=== PATIENT | female | born 1960 | race African-American/Black ===

== ENCOUNTER 2019-08-15 15:21 | Emergency (ER) | payer MEDICARE, MEDICAID ==
[~2019-08-15] VITALS: Ht 172.7 cm; Wt 100.0 kg
[~2019-08-15 15:21] MED LIST: DIAZ10TA MT
[2019-08-15] MEDS ORDERED: ONDANSETRON HCL 4MG/2ML INJ IV STA (21:56)
[2019-08-15] MEDS ORDERED: SODIUM CHLORIDE 0.9% 1,000 ML IV ONE (21:56)
[2019-08-15] MEDS ORDERED: MORPHINE SULFATE 4 MG/ML CPJ (NOT FOR IM USE) IV STA (21:56)
[2019-08-15] MEDS ORDERED: ONDANSETRON 4MG ODT PO ONE (22:00)
[2019-08-15] MEDS ORDERED: HYDROCODONE/ACETAMINOPHEN 5/325MG TABLET PO ONE (22:00)
[2019-08-15 22:27] LABS: CLARITY URINE CLEAR (CLEAR); COLOR URINE YELLOW (YELLOW); KETONES URINE NEGATIVE (NEGATIVE); LEUKOCYTE ESTERASE URINE 2+ (NEGATIVE); NITRITE URINE NEGATIVE (NEGATIVE); OCCULT BLOOD URINE TRACE (NEGATIVE); PROTEIN URINE NEGATIVE (NEGATIVE); SPECIFIC GRAVITY URINE 1.019 (1.005-1.030); UROBILINOGEN URINE 0.2 E.U./dL (0.2-1.0)
[2019-08-15 22:41] LABS: *AMPHETAMINES SCREEN URINE NEGATIVE (NEGATIVE); CANNABINOID URINE SCREEN PRESUMTIVE POSITIVE (NEGATIVE); METHADONE URINE SCREEN NEGATIVE (NEGATIVE); OPIATES URINE SCREEN PRESUMTIVE POSITIVE (NEGATIVE); PHENCYCLIDINE URINE SCREEN NEGATIVE (NEGATIVE)
[2019-08-15 22:42] LABS: *BARBITURATES SCREEN URINE NEGATIVE (NEGATIVE); *BENZODIAZEPINES SCREEN URINE PRESUMTIVE POSITIVE (NEGATIVE); *COCAINE SCREEN URINE NEGATIVE (NEGATIVE)
[2019-08-15 23:11] LABS: BASOPHILS % 0.9 % (0.0-2.0); EOSINOPHILS % 3.1 % (0.0-5.0); HEMATOCRIT. 41.7 % (36.0-48.0); LYMPHOCYTES % 44.5 % (20.0-50.0); MEAN CORPUSCULAR HEMOGLOBIN 27.8 pg (28.0-32.0); MEAN CORPUSCULAR VOLUME 82.8 fL (81.0-99.0); MEAN PLATELET VOLUME 7.2 fl (7.4-10.4); MONOCYTES % 7.7 % (2.0-8.0); NEUTROPHILS % 43.8 % (40.0-76.0); PLATELET 351 x1000/uL (130-400); RED BLOOD CELL COUNT 5.04 mill/uL (4.2-5.4); RED CELL DISTRIBUTION WIDTH 13.8 % (11.6-14.6)
[2019-08-15 23:18] LABS: CHLORIDE 100 mEq/L (98-107)
[2019-08-15 23:22] LABS: ETHANOL BLOOD < 10 mg/dL
[2019-08-16] MEDS ORDERED: MORPHINE SULFATE 4 MG/ML CPJ (NOT FOR IM USE) IV ONE (01:00)
[2019-08-16] MEDS ORDERED: ONDANSETRON HCL 4MG/2ML INJ IV ONE (01:00)
[2019-08-16 02:00] VITALS: BP 131/58
== END 2019-08-16 02:00 | disposition home or self-care (01) ==
LOC: ER 15:21 → CANBEDREQ 08-16 02:43
DX: N39.0 Urinary tract infection, site not specified (principal); K57.90 Diverticulosis of intestine, part unspecified, without perforation or abscess without bleeding; I10 Essential (primary) hypertension; R51 Headache; F12.90 Cannabis use, unspecified, uncomplicated
CPT/HCPCS: 36415; 71045; 74176; 80053; 80305; 80320; 81003; 83690; 83880; 84484; 85025; 93005; 96361; 96374; 96375; 96376; 99285; J2270; J2405; J7030; G0480

== ENCOUNTER 2019-11-14 13:04 | Emergency (ER) | payer MEDICARE, MEDICAID ==
[~2019-11-14] VITALS: Ht 165.1 cm; Wt 91.0 kg
[2019-11-14 15:13] LABS: CLARITY URINE CLEAR (CLEAR); COLOR URINE YELLOW (YELLOW); KETONES URINE TRACE (NEGATIVE); LEUKOCYTE ESTERASE URINE 2+ (NEGATIVE); NITRITE URINE NEGATIVE (NEGATIVE); OCCULT BLOOD URINE 1+ (NEGATIVE); PH URINE 5.5 (4.5-8.0); PROTEIN URINE NEGATIVE (NEGATIVE); SPECIFIC GRAVITY URINE 1.025 (1.005-1.030); UROBILINOGEN URINE 0.2 E.U./dL (0.2-1.0)
[2019-11-14 15:41] LABS: CHLORIDE 105 mEq/L (98-107)
[2019-11-14 15:43] LABS: BASOPHILS % 0.7 % (0.0-2.0); EOSINOPHILS % 1.4 % (0.0-5.0); HEMATOCRIT. 41.6 % (36.0-48.0); LYMPHOCYTES % 37.3 % (20.0-50.0); MEAN CORPUSCULAR HEMOGLOBIN 27.4 pg (28.0-32.0); MEAN CORPUSCULAR VOLUME 81.6 fL (81.0-99.0); MEAN PLATELET VOLUME 6.4 fl (7.4-10.4); NEUTROPHILS % 54.6 % (40.0-76.0); PLATELET 419 x1000/uL (130-400); RED BLOOD CELL COUNT 5.09 mill/uL (4.2-5.4); RED CELL DISTRIBUTION WIDTH 15.6 % (11.6-14.6)
[2019-11-14 16:20] VITALS: BP 150/100
== END 2019-11-14 16:32 | disposition home or self-care (01) ==
LOC: ER 13:04
DX: N30.00 Acute cystitis without hematuria (principal); F43.22 Adjustment disorder with anxiety; I10 Essential (primary) hypertension; K57.92 Diverticulitis of intestine, part unspecified, without perforation or abscess without bleeding; Z87.19 Personal history of other diseases of the digestive system
CPT/HCPCS: 36415; 80053; 81003; 81025; 85025; 99283

== ENCOUNTER 2020-02-04 09:49 | Emergency (ER) | payer MEDICARE, MEDICAID ==
[~2020-02-04] VITALS: Ht 170.2 cm; Wt 89.2 kg
[2020-02-04] MEDS ORDERED: KETOROLAC 30MG/ML VIAL IV ONE (10:15)
[2020-02-04 12:00] VITALS: BP 142/68
== END 2020-02-04 12:27 | disposition home or self-care (01) ==
LOC: ER 10:17
DX: G62.9 Polyneuropathy, unspecified (principal); M54.2 Cervicalgia; R53.1 Weakness; Z91.14 Patient's other noncompliance with medication regimen; I10 Essential (primary) hypertension
CPT/HCPCS: 72125; 93005; 96374; 99284; J1885

== ENCOUNTER 2020-02-15 09:05 | Emergency (ER) | payer MEDICARE, MEDICAID ==
[~2020-02-15] VITALS: Ht 170.2 cm; Wt 85.0 kg
[2020-02-15] MEDS ORDERED: LORAZEPAM 0.5MG TABLET PO ONE (10:30)
[2020-02-15] MEDS ORDERED: KETOROLAC 60MG/2ML VIAL IM ONE (10:30)
[2020-02-15 10:37] LABS: BASOPHILS % 0.7 % (0.0-2.0); EOSINOPHILS % 0.7 % (0.0-5.0); HEMATOCRIT. 42.4 % (36.0-48.0); HEMOGLOBIN. 14.1 g/dL (12.0-16.0); MEAN CORPUSCULAR HEMOGLOBIN 28.1 pg (28.0-32.0); MEAN CORPUSCULAR VOLUME 84.6 fL (81.0-99.0); MEAN PLATELET VOLUME 6.7 fl (7.4-10.4); MONOCYTES % 4.3 % (2.0-8.0); NEUTROPHILS % 70.3 % (40.0-76.0); PLATELET 330 x1000/uL (130-400); RED BLOOD CELL COUNT 5.01 mill/uL (4.2-5.4)
[2020-02-15 10:46] LABS: CHLORIDE 108 mEq/L (98-107)
[2020-02-15 11:25] VITALS: BP 136/82
== END 2020-02-15 11:40 | disposition home or self-care (01) ==
LOC: ER 09:05
DX: M19.011 Primary osteoarthritis, right shoulder (principal); R20.2 Paresthesia of skin; I10 Essential (primary) hypertension; Z88.8 Allergy status to other drugs, medicaments and biological substances; Z98.51 Tubal ligation status
CPT/HCPCS: 36415; 73030; 80053; 85025; 93005; 96372; 99285; J1885

== ENCOUNTER 2020-06-05 11:54 | Emergency (ER) | payer MEDICARE, MEDICAID ==
[~2020-06-05] VITALS: Ht 170.2 cm; Wt 90.0 kg
[2020-06-05 12:05] VITALS: BP 139/92
== END 2020-06-05 13:14 | disposition home or self-care (01) ==
LOC: ER 12:07
DX: I10 Essential (primary) hypertension (principal)
CPT/HCPCS: 99282

== ENCOUNTER 2020-10-03 14:29 | Emergency (ER) | payer MEDICARE, MEDICAID ==
[~2020-10-03] VITALS: Ht 170.2 cm; Wt 91.0 kg
[2020-10-03] MEDS ORDERED: METH-773 MT (15:46)
[2020-10-03] MEDS ORDERED: TOPUD MT (15:46)
[2020-10-03 15:59] VITALS: BP 124/92
== END 2020-10-03 16:19 | disposition home or self-care (01) ==
LOC: ER 14:29
DX: S46.912A Strain of unspecified muscle, fascia and tendon at shoulder and upper arm level, left arm, initial encounter (principal); F12.10 Cannabis abuse, uncomplicated; I10 Essential (primary) hypertension; X58.XXXA Exposure to other specified factors, initial encounter; Y93.89 Activity, other specified; Y92.89 Other specified places as the place of occurrence of the external cause; Y99.8 Other external cause status
CPT/HCPCS: 99283

== ENCOUNTER 2020-10-11 11:07 | Inpatient (IN) | payer MEDICARE, MEDICAID ==
[~2020-10-11] VITALS: Ht 175.3 cm; Wt 87.5 kg
[~2020-10-11 11:07] MED LIST changes: +METH-773 MT; +TOPUD MT
[2020-10-11] MEDS ORDERED: ONDANSETRON HCL 4MG/2ML INJ IV STA (11:50)
[2020-10-11] MEDS ORDERED: SODIUM CHLORIDE 0.9% 1,000 ML IV ONE (12:00)
[2020-10-11 12:25] LABS: BASOPHILS % 0.7 % (0.0-2.0); EOSINOPHILS % 1.1 % (0.0-5.0); HEMOGLOBIN. 13.6 g/dL (12.0-16.0); LYMPHOCYTES % 29.9 % (20.0-50.0); MEAN CORPUSCULAR HEMOGLOBIN 27.8 pg (28.0-32.0); MEAN CORPUSCULAR VOLUME 83.9 fL (81.0-99.0); MEAN PLATELET VOLUME 6.7 fl (7.4-10.4); NEUTROPHILS % 62.3 % (40.0-76.0); PLATELET 324 x1000/uL (130-400); RED BLOOD CELL COUNT 4.89 mill/uL (4.2-5.4); RED CELL DISTRIBUTION WIDTH 14.6 % (11.6-14.6)
[2020-10-11 12:30] LABS: CHLORIDE 106 mEq/L (98-107)
[2020-10-11 12:36] LABS: PARTIAL THROMBOPLASTIN TIME 26.8 sec (23.4-31.0); PROTHROMBIN TIME 10.3 sec (9.6-11.0)
[2020-10-11] MEDS ORDERED: ASPIRIN 325MG EC TABLET PO ONE (13:15)
[2020-10-11] MEDS ORDERED: ACETAMINOPHEN 325MG TABLET PO ONE (13:30)
[2020-10-11] MEDS: AMLODIPINE 5MG TABLET PO SCH (13:38)
[2020-10-11 16:10] VITALS: BP 176/102
[2020-10-11] MEDS ORDERED: HYDRALAZINE 20MG/ML VIAL IV PRN (17:00)
[2020-10-11] MEDS ORDERED: DOCUSATE SODIUM 100MG CAPSULE PO PRN (17:00)
[2020-10-11] MEDS ORDERED: ONDANSETRON HCL 4MG/2ML INJ IV PRN (17:00)
[2020-10-11] MEDS ORDERED: DIPHENHYDRAMINE 50MG/ML VIAL IV PRN (17:00)
[2020-10-11] MEDS ORDERED: MAGNESIUM/ALUMINUM HYDROXIDE/SIMETHICONE 30ML UDC PO PRN (17:00)
[2020-10-11] MEDS ORDERED: IPRATROPIUM/ALBUTEROL 0.5-3(2.5)MG/3ML NEB HHN PRN (17:00)
[2020-10-11] MEDS ORDERED: GUAIFENESIN 200MG/10ML SUGAR FREE UDC PO PRN (17:00)
[2020-10-11] MEDS ORDERED: CLONIDINE 0.1MG TABLET PO PRN (17:00)
[2020-10-11] MEDS: HYDROCODONE/ACETAMINOPHEN 5/325MG TABLET PO PRN (17:32)
[2020-10-11] MEDS: ENOXAPARIN 30MG/0.3ML SYR SUBCUT SCH (17:34)
[2020-10-11 20:00] VITALS: BP 147/91
[2020-10-11] MEDS: ACETAMINOPHEN 325MG TABLET PO PRN (20:02)
[2020-10-11] MEDS: MORPHINE SULFATE 2 MG/ML CPJ (NOT FOR IM USE) IV PRN (22:07)
[2020-10-11] MEDS: SODIUM CHLORIDE 0.9% INJ 3ML FLUSH IVF SCH (22:08)
[2020-10-12] VITALS: BP 130/73
[2020-10-12 00:58] LABS: CREATINE KINASE 88 IU/L (26-192)
[2020-10-12 00:59] LABS: CREATINE KINASE MB FRACTION < 1.0 ng/mL (0.5-3.6)
[2020-10-12 01:39] LABS: CLARITY URINE CLEAR (CLEAR); COLOR URINE YELLOW (YELLOW); KETONES URINE NEGATIVE (NEGATIVE); LEUKOCYTE ESTERASE URINE NEGATIVE (NEGATIVE); NITRITE URINE NEGATIVE (NEGATIVE); OCCULT BLOOD URINE TRACE (NEGATIVE); PH URINE 5.5 (4.5-8.0); PROTEIN URINE NEGATIVE (NEGATIVE); SPECIFIC GRAVITY URINE 1.015 (1.005-1.030); UROBILINOGEN URINE 0.2 E.U./dL (0.2-1.0)
[2020-10-12 01:57] LABS: *AMPHETAMINES SCREEN URINE NEGATIVE (NEGATIVE); *BARBITURATES SCREEN URINE NEGATIVE (NEGATIVE)
[2020-10-12 01:58] LABS: *BENZODIAZEPINES SCREEN URINE NEGATIVE (NEGATIVE); *COCAINE SCREEN URINE NEGATIVE (NEGATIVE); CANNABINOID URINE SCREEN PRESUMTIVE POSITIVE (NEGATIVE); METHADONE URINE SCREEN NEGATIVE (NEGATIVE); OPIATES URINE SCREEN PRESUMTIVE POSITIVE (NEGATIVE); PHENCYCLIDINE URINE SCREEN NEGATIVE (NEGATIVE)
[2020-10-12] MEDS: LORAZEPAM 2MG/ML CPJ IV PRN (03:14)
[2020-10-12 04:00] VITALS: BP 130/76
[2020-10-12] MEDS: SODIUM CHLORIDE 0.9% INJ 3ML FLUSH IVF SCH ×3 (05:38→20:53)
[2020-10-12] MEDS: ENOXAPARIN 30MG/0.3ML SYR SUBCUT SCH ×2 (05:38→17:08)
[2020-10-12] MEDS: ACETAMINOPHEN 325MG TABLET PO PRN ×2 (05:44→11:42)
[2020-10-12 06:01] LABS: CHLORIDE 103 mEq/L (98-107)
[2020-10-12 06:11] LABS: CREATINE KINASE 78 IU/L (26-192)
[2020-10-12 06:13] LABS: BASOPHILS % 0.5 % (0.0-2.0); EOSINOPHILS % 2.7 % (0.0-5.0); HEMATOCRIT. 40.8 % (36.0-48.0); HEMOGLOBIN. 13.5 g/dL (12.0-16.0); LYMPHOCYTES % 41.6 % (20.0-50.0); MEAN CORPUSCULAR HEMOGLOBIN 27.3 pg (28.0-32.0); MEAN CORPUSCULAR VOLUME 82.8 fL (81.0-99.0); MEAN PLATELET VOLUME 6.6 fl (7.4-10.4); MONOCYTES % 9.2 % (2.0-8.0); PLATELET 338 x1000/uL (130-400); RED BLOOD CELL COUNT 4.93 mill/uL (4.2-5.4); RED CELL DISTRIBUTION WIDTH 14.6 % (11.6-14.6)
[2020-10-12 06:14] LABS: CREATINE KINASE MB FRACTION < 1.0 ng/mL (0.5-3.6)
[2020-10-12 08:00] VITALS: BP 148/98
[2020-10-12] MEDS: AMLODIPINE 5MG TABLET PO SCH (08:32)
[2020-10-12] MEDS ORDERED: POTASSIUM CHLORIDE 20MEQ TABLET SR PO SCH (08:45)
[2020-10-12] MEDS: PANTOPRAZOLE SODIUM 40 MG/VIAL IV SCH (11:42)
[2020-10-12 12:00] VITALS: BP 143/86
[2020-10-12] MEDS: HYDROCODONE/ACETAMINOPHEN 5/325MG TABLET PO PRN (13:59)
[2020-10-12 16:00] VITALS: BP 131/86
[2020-10-12] MEDS: ASPIRIN 81MG EC TABLET PO SCH (17:07)
[2020-10-12] MEDS: MORPHINE SULFATE 2 MG/ML CPJ (NOT FOR IM USE) IV PRN (20:53)
[2020-10-13] VITALS (7 sets, daily range): BP systolic 108–145; BP diastolic 61–93
[2020-10-13] MEDS: LORAZEPAM 2MG/ML CPJ IV PRN (01:49)
[2020-10-13] MEDS: SODIUM CHLORIDE 0.9% INJ 3ML FLUSH IVF SCH ×3 (06:00→21:16)
[2020-10-13] MEDS: ENOXAPARIN 30MG/0.3ML SYR SUBCUT SCH ×2 (06:00→18:08)
[2020-10-13 06:26] LABS: BASOPHILS % 0.4 % (0.0-2.0); EOSINOPHILS % 2.6 % (0.0-5.0); HEMATOCRIT. 40.8 % (36.0-48.0); HEMOGLOBIN. 13.7 g/dL (12.0-16.0); LYMPHOCYTES % 40.2 % (20.0-50.0); MEAN CORPUSCULAR HEMOGLOBIN 27.6 pg (28.0-32.0); MEAN CORPUSCULAR VOLUME 82.4 fL (81.0-99.0); MEAN PLATELET VOLUME 6.6 fl (7.4-10.4); NEUTROPHILS % 46.8 % (40.0-76.0); PLATELET 344 x1000/uL (130-400); RED BLOOD CELL COUNT 4.95 mill/uL (4.2-5.4); RED CELL DISTRIBUTION WIDTH 14.1 % (11.6-14.6)
[2020-10-13 07:44] LABS: CHLORIDE 105 mEq/L (98-107)
[2020-10-13] MEDS: PANTOPRAZOLE SODIUM 40 MG/VIAL IV SCH (09:17)
[2020-10-13] MEDS: AMLODIPINE 5MG TABLET PO SCH (09:18)
[2020-10-13] MEDS: ASPIRIN 81MG EC TABLET PO SCH (09:18)
[2020-10-13] MEDS: HYDROCODONE/ACETAMINOPHEN 5/325MG TABLET PO PRN ×3 (11:34→23:33)
[2020-10-13] MEDS: GABAPENTIN 100MG CAPSULE PO SCH ×2 (14:57→21:15)
[2020-10-13] MEDS: ACETAMINOPHEN 325MG TABLET PO PRN (19:23)
[2020-10-13] MEDS: FAMOTIDINE 20MG TABLET PO SCH (21:16)
[2020-10-13] MEDS: MORPHINE SULFATE 2 MG/ML CPJ (NOT FOR IM USE) IV PRN (21:17)
[2020-10-14 04:00] VITALS: BP 94/77
[2020-10-14] MEDS: ENOXAPARIN 30MG/0.3ML SYR SUBCUT SCH (06:00)
[2020-10-14 06:06] LABS: CHLORIDE 104 mEq/L (98-107)
[2020-10-14] MEDS: GABAPENTIN 100MG CAPSULE PO SCH ×3 (06:13→20:24)
[2020-10-14] MEDS: SODIUM CHLORIDE 0.9% INJ 3ML FLUSH IVF SCH ×3 (06:14→20:25)
[2020-10-14] MEDS: LORAZEPAM 2MG/ML CPJ IV PRN ×2 (06:14→22:06)
[2020-10-14 06:29] LABS: BASOPHILS % 0.5 % (0.0-2.0); EOSINOPHILS % 3.9 % (0.0-5.0); HEMATOCRIT. 40.3 % (36.0-48.0); HEMOGLOBIN. 13.7 g/dL (12.0-16.0); LYMPHOCYTES % 47.4 % (20.0-50.0); MEAN CORPUSCULAR HEMOGLOBIN 28.3 pg (28.0-32.0); MEAN PLATELET VOLUME 6.6 fl (7.4-10.4); MONOCYTES % 9.1 % (2.0-8.0); NEUTROPHILS % 39.1 % (40.0-76.0); PLATELET 332 x1000/uL (130-400); RED BLOOD CELL COUNT 4.86 mill/uL (4.2-5.4); RED CELL DISTRIBUTION WIDTH 14.3 % (11.6-14.6)
[2020-10-14 08:00] VITALS: BP 116/77
[2020-10-14] MEDS ORDERED: REGADENOSON 0.4 MG/5 ML IV NR (09:00)
[2020-10-14] MEDS: FAMOTIDINE 20MG TABLET PO SCH ×2 (09:39→20:24)
[2020-10-14] MEDS: ASPIRIN 81MG EC TABLET PO SCH (09:39)
[2020-10-14] MEDS ORDERED: REGADENOSON 0.4 MG/5 ML IV ONE (11:24)
[2020-10-14 12:00] VITALS: BP 115/83
[2020-10-14] MEDS: HYDROCODONE/ACETAMINOPHEN 5/325MG TABLET PO PRN (12:49)
[2020-10-14] MEDS: MORPHINE SULFATE 2 MG/ML CPJ (NOT FOR IM USE) IV PRN (15:59)
[2020-10-14 16:00] VITALS: BP 107/76
[2020-10-14] MEDS: DEXAMETHASONE 4MG/ML 1ML VIAL IV SCH (18:06)
[2020-10-14 20:00] VITALS: BP 122/84
[2020-10-15] VITALS: BP 120/79
[2020-10-15] MEDS: DEXAMETHASONE 4MG/ML 1ML VIAL IV SCH ×4 (00:05→17:46)
[2020-10-15] MEDS: MORPHINE SULFATE 2 MG/ML CPJ (NOT FOR IM USE) IV PRN ×2 (03:12→23:16)
[2020-10-15 04:00] VITALS: BP 132/84
[2020-10-15] MEDS: SODIUM CHLORIDE 0.9% INJ 3ML FLUSH IVF SCH ×3 (06:37→23:06)
[2020-10-15] MEDS: GABAPENTIN 100MG CAPSULE PO SCH ×3 (06:37→23:06)
[2020-10-15 07:58] VITALS: BP 152/87
[2020-10-15] MEDS: ACETAMINOPHEN 325MG TABLET PO PRN ×2 (08:14→16:40)
[2020-10-15] MEDS: FAMOTIDINE 20MG TABLET PO SCH ×2 (08:14→21:00)
[2020-10-15 11:14] VITALS: BP 133/100
[2020-10-15] MEDS: HYDROCODONE/ACETAMINOPHEN 5/325MG TABLET PO PRN (11:16)
[2020-10-15 15:46] VITALS: BP 143/81
[2020-10-15 20:00] VITALS: BP 129/81
[2020-10-16] VITALS (38 sets, daily range): BP systolic 94–154; BP diastolic 44–96
[2020-10-16] MEDS: HYDROCODONE/ACETAMINOPHEN 5/325MG TABLET PO PRN (00:42)
[2020-10-16] MEDS: DEXAMETHASONE 4MG/ML 1ML VIAL IV SCH ×5 (00:43→23:16)
[2020-10-16] MEDS: MORPHINE SULFATE 2 MG/ML CPJ (NOT FOR IM USE) IV PRN (05:10)
[2020-10-16] MEDS: SODIUM CHLORIDE 0.9% INJ 3ML FLUSH IVF SCH ×3 (05:15→21:44)
[2020-10-16] MEDS: GABAPENTIN 100MG CAPSULE PO SCH ×3 (05:16→21:42)
[2020-10-16 06:20] LABS: CHLORIDE 101 mEq/L (98-107)
[2020-10-16 06:34] LABS: BASOPHILS % 0.1 % (0.0-2.0); HEMATOCRIT. 41.1 % (36.0-48.0); LYMPHOCYTES % 11.7 % (20.0-50.0); MEAN CORPUSCULAR HEMOGLOBIN 28.2 pg (28.0-32.0); MEAN CORPUSCULAR VOLUME 82.6 fL (81.0-99.0); MEAN PLATELET VOLUME 6.8 fl (7.4-10.4); MONOCYTES % 3.8 % (2.0-8.0); NEUTROPHILS % 84.4 % (40.0-76.0); PLATELET 367 x1000/uL (130-400); PROTHROMBIN TIME 10.5 sec (9.6-11.0); RED BLOOD CELL COUNT 4.98 mill/uL (4.2-5.4); RED CELL DISTRIBUTION WIDTH 14.4 % (11.6-14.6)
[2020-10-16] MEDS ORDERED: LIDOCAINE HCL/EPINEPHRINE 1%-EPI 1:100,000 20 ML VIAL ONE (07:46)
[2020-10-16] MEDS ORDERED: BACITRACIN 15GM TUBE TOP ONE (07:46)
[2020-10-16] MEDS ORDERED: THROMBIN (BOVINE) 5000 UNITS/VIAL TOP ONE (07:47)
[2020-10-16] MEDS: FAMOTIDINE 20MG TABLET PO SCH ×2 (08:38→21:42)
[2020-10-16] MEDS ORDERED: GENTAMICIN SULF 40MG/ML 2ML VIAL ONE (10:50)
[2020-10-16] MEDS ORDERED: ROCURONIUM BROMIDE 10MG/ML VIAL 5ML IV ONE (12:38)
[2020-10-16] MEDS ORDERED: HYDROMORPHONE HCL/PF 2MG/ML (OR) ONE (12:38)
[2020-10-16] MEDS ORDERED: CEFAZOLIN SODIUM 1000MG/VIAL ONE (12:58)
[2020-10-16] MEDS ORDERED: METOPROLOL TARTRATE 5MG/5ML VIAL IV ONE (12:58)
[2020-10-16] MEDS ORDERED: HYDRALAZINE 20MG/ML VIAL ONE ×2 (12:58→14:04)
[2020-10-16] MEDS ORDERED: DEXAMETHASONE 4MG/ML 1ML VIAL ONE (12:59)
[2020-10-16] MEDS ORDERED: LABETALOL HCL 5MG/ML VIAL 20ML IV ONE (13:16)
[2020-10-16] MEDS ORDERED: PROPOFOL 200MG/20ML VIAL IV ONE (13:55)
[2020-10-16] MEDS ORDERED: CEFAZOLIN SODIUM 1000MG/VIAL IV SCH (14:00)
[2020-10-16] MEDS ORDERED: NEOSTIGMINE METHYLSULFATE 1MG/ML 10 ML VIAL ONE (14:10)
[2020-10-16] MEDS ORDERED: GLYCOPYRROLATE 0.2 MG/ML 2ML VIAL ONE (14:10)
[2020-10-16] MEDS: DEXT 5%/LACTATED RINGERS 1,000 ML IV SCH (14:56)
[2020-10-16] MEDS: NICARDIPINE 100 MG in SODIUM CHLORIDE 0.9% 60 ML IV PRN (15:08)
[2020-10-16] MEDS: MORPHINE SULFATE 4 MG/ML CPJ (NOT FOR IM USE) IV PRN ×2 (15:30→18:01)
[2020-10-16] MEDS ORDERED: DIPHENHYDRAMINE INJ IV PRN (18:00)
[2020-10-16] MEDS ORDERED: HYDROMORPHONE PCA 10MG/50ML IV PRN (18:00)
[2020-10-16] MEDS ORDERED: ONDANSETRON INJ IV PRN (18:00)
[2020-10-16] MEDS ORDERED: NALOXONE INJ IV PRN (18:00)
[2020-10-16] MEDS: CEFAZOLIN 1000MG PREMIX 50 ML IV SCH (19:34)
[2020-10-17] VITALS (98 sets, daily range): BP systolic 110–155; BP diastolic 48–82
[2020-10-17] MEDS: DEXT 5%/LACTATED RINGERS 1,000 ML IV SCH ×3 (01:42→20:04)
[2020-10-17] MEDS: NICARDIPINE 100 MG in SODIUM CHLORIDE 0.9% 60 ML IV PRN ×2 (03:28→15:02)
[2020-10-17] MEDS: CEFAZOLIN 1000MG PREMIX 50 ML IV SCH ×3 (05:20→21:47)
[2020-10-17] MEDS: GABAPENTIN 100MG CAPSULE PO SCH ×3 (05:20→21:47)
[2020-10-17] MEDS: DEXAMETHASONE 4MG/ML 1ML VIAL IV SCH ×3 (05:20→17:08)
[2020-10-17] MEDS: SODIUM CHLORIDE 0.9% INJ 3ML FLUSH IVF SCH ×2 (05:25→14:39)
[2020-10-17] MEDS: FAMOTIDINE 20MG TABLET PO SCH ×2 (09:12→20:05)
[2020-10-17] MEDS: MORPHINE SULFATE 4 MG/ML CPJ (NOT FOR IM USE) IV PRN ×5 (09:13→20:05)
[2020-10-17] MEDS: METOPROLOL TARTRATE 25MG TABLET PO SCH (17:09)
[2020-10-17] MEDS: AMLODIPINE 10MG TABLET PO SCH (20:05)
[2020-10-18] VITALS (43 sets, daily range): BP systolic 68–136; BP diastolic 28–98
[2020-10-18] MEDS: METOPROLOL TARTRATE 25MG TABLET PO SCH ×3 (00:10→16:53)
[2020-10-18 05:27] LABS: BASOPHILS % 0.2 % (0.0-2.0); HEMATOCRIT. 41.2 % (36.0-48.0); HEMOGLOBIN. 13.6 g/dL (12.0-16.0); LYMPHOCYTES % 9.7 % (20.0-50.0); MEAN CORPUSCULAR HEMOGLOBIN 27.4 pg (28.0-32.0); MEAN CORPUSCULAR VOLUME 82.9 fL (81.0-99.0); MONOCYTES % 9.5 % (2.0-8.0); NEUTROPHILS % 80.6 % (40.0-76.0); PLATELET 406 x1000/uL (130-400); RED BLOOD CELL COUNT 4.97 mill/uL (4.2-5.4); RED CELL DISTRIBUTION WIDTH 13.9 % (11.6-14.6)
[2020-10-18 05:32] LABS: CHLORIDE 100 mEq/L (98-107)
[2020-10-18] MEDS: GABAPENTIN 100MG CAPSULE PO SCH ×3 (06:03→22:54)
[2020-10-18] MEDS: DEXT 5%/LACTATED RINGERS 1,000 ML IV SCH (06:03)
[2020-10-18] MEDS: CEFAZOLIN 1000MG PREMIX 50 ML IV SCH ×3 (06:03→22:53)
[2020-10-18] MEDS: FAMOTIDINE 20MG TABLET PO SCH ×2 (07:27→20:09)
[2020-10-18] MEDS: AMLODIPINE 10MG TABLET PO SCH (07:28)
[2020-10-18] MEDS: MORPHINE SULFATE 4 MG/ML CPJ (NOT FOR IM USE) IV PRN ×2 (12:31→16:54)
[2020-10-18] MEDS: ACETAMINOPHEN 325MG TABLET PO PRN ×2 (14:46→19:34)
[2020-10-18] MEDS ORDERED: ACETAMINOPHEN 325MG TABLET PO PRN (19:45)
[2020-10-19] VITALS: BP 109/84
[2020-10-19] MEDS: METOPROLOL TARTRATE 25MG TABLET PO SCH ×3 (00:30→17:12)
[2020-10-19] MEDS: HYDROCODONE/ACETAMINOPHEN 5/325MG TABLET PO PRN ×4 (00:39→18:33)
[2020-10-19 04:00] VITALS: BP 123/86
[2020-10-19] MEDS: CEFAZOLIN 1000MG PREMIX 50 ML IV SCH ×3 (05:31→21:34)
[2020-10-19] MEDS: GABAPENTIN 100MG CAPSULE PO SCH ×3 (05:31→21:34)
[2020-10-19 06:16] LABS: BASOPHILS % 0.2 % (0.0-2.0); EOSINOPHILS % 0.1 % (0.0-5.0); HEMOGLOBIN. 14.1 g/dL (12.0-16.0); LYMPHOCYTES % 25.8 % (20.0-50.0); MEAN CORPUSCULAR HEMOGLOBIN 28.3 pg (28.0-32.0); MEAN CORPUSCULAR VOLUME 82.4 fL (81.0-99.0); MEAN PLATELET VOLUME 6.8 fl (7.4-10.4); MONOCYTES % 12.5 % (2.0-8.0); NEUTROPHILS % 61.4 % (40.0-76.0); PLATELET 395 x1000/uL (130-400); RED BLOOD CELL COUNT 4.98 mill/uL (4.2-5.4); RED CELL DISTRIBUTION WIDTH 14.2 % (11.6-14.6)
[2020-10-19 06:39] LABS: CHLORIDE 98 mEq/L (98-107)
[2020-10-19 08:00] VITALS: BP 115/72
[2020-10-19] MEDS: FAMOTIDINE 20MG TABLET PO SCH ×2 (08:31→21:34)
[2020-10-19] MEDS: AMLODIPINE 10MG TABLET PO SCH (08:32)
[2020-10-19 12:00] VITALS: BP 114/83
[2020-10-19 16:00] VITALS: BP_SYST 109; BP_SYST 119; BP_DIAS 43; BP_DIAS 79
[2020-10-19 20:00] VITALS: BP 104/73
[2020-10-20] VITALS (7 sets, daily range): BP systolic 100–116; BP diastolic 71–98
[2020-10-20] MEDS: METOPROLOL TARTRATE 25MG TABLET PO SCH ×3 (00:30→17:31)
[2020-10-20] MEDS: HYDROCODONE/ACETAMINOPHEN 5/325MG TABLET PO PRN ×2 (02:13→08:08)
[2020-10-20] MEDS: CEFAZOLIN 1000MG PREMIX 50 ML IV SCH ×2 (05:47→14:20)
[2020-10-20] MEDS: GABAPENTIN 100MG CAPSULE PO SCH ×2 (05:47→14:18)
[2020-10-20] MEDS: AMLODIPINE 10MG TABLET PO SCH (08:48)
[2020-10-20] MEDS: FAMOTIDINE 20MG TABLET PO SCH (08:48)
[2020-10-20] MEDS: MORPHINE SULFATE 4 MG/ML CPJ (NOT FOR IM USE) IV PRN ×2 (11:14→15:45)
== END 2020-10-20 20:15 | DRG 471 ==
LOC: ER 11:31 → 6WST 13:57 → ENRESERV 14:41 → MICUSO 10-16 14:08 → 5WST 10-18 20:40
PROVIDERS: ADMIT Internal Medicine; ATTEND Internal Medicine
PROC: 0RG20A0 Fusion of 2 or more Cervical Vertebral Joints with Interbody Fusion Device, Anterior Approach, Anterior Column, Open Approach (ICD-10-PCS; principal; 2020-10-16)
PROC: 0RT30ZZ Resection of Cervical Vertebral Disc, Open Approach (ICD-10-PCS; 2020-10-16)
PROC: 01N10ZZ Release Cervical Nerve, Open Approach (ICD-10-PCS; 2020-10-16)
PROC: 00NW0ZZ Release Cervical Spinal Cord, Open Approach (ICD-10-PCS; 2020-10-16)
PROC: 4A11X4G Monitoring of Peripheral Nervous Electrical Activity, Intraoperative, External Approach (ICD-10-PCS; 2020-10-16)
DX: M47.12 Other spondylosis with myelopathy, cervical region (principal); G82.50 Quadriplegia, unspecified; K86.0 Alcohol-induced chronic pancreatitis; M50.021 Cervical disc disorder at C4-C5 level with myelopathy; M50.121 Cervical disc disorder at C4-C5 level with radiculopathy; M48.02 Spinal stenosis, cervical region; R07.9 Chest pain, unspecified; Z20.822 Contact with and (suspected) exposure to COVID-19; M47.22 Other spondylosis with radiculopathy, cervical region; M19.012 Primary osteoarthritis, left shoulder; I10 Essential (primary) hypertension; K29.70 Gastritis, unspecified, without bleeding; F12.90 Cannabis use, unspecified, uncomplicated; I27.20 Pulmonary hypertension, unspecified; K21.9 Gastro-esophageal reflux disease without esophagitis; F10.10 Alcohol abuse, uncomplicated; R26.81 Unsteadiness on feet; R33.9 Retention of urine, unspecified; F32.9 Major depressive disorder, single episode, unspecified; F41.9 Anxiety disorder, unspecified; Z87.891 Personal history of nicotine dependence; Z86.73 Personal history of transient ischemic attack (TIA), and cerebral infarction without residual deficits; Z98.51 Tubal ligation status
CPT/HCPCS: 36415; 70551; 71045; 72040; 72141; 73030; 76000; 78452; 80048; 80053; 80305; 81003; 82550; 82553; 83735; 83880; 84100; 84443; 84484; 85025; 86850; 86900; 87426; 88304; 88311; 92610; 93005; 93017; 93306; 95863; 95925; 95926; 95928; 95929; 95940; 97162; 97166; 97530; 99285; A6261; A9500; C1713; C1893; C9113; J0360; J0690; J1100; J1170; J1200; J1580; J1650; J2060; J2270; J2405; J2704; J2710; J2785; J3490; J7030; J7040; J7050; J7121; L0172; C1762

== ENCOUNTER 2020-10-20 20:20 | Inpatient (IN) | payer MEDICARE, MEDICAID ==
[~2020-10-20] VITALS: Ht 175.3 cm; Wt 89.9 kg
[2020-10-20 20:20] VITALS: BP 101/70
[~2020-10-20 20:20] MED LIST changes: -TOPUD MT
[2020-10-20 20:30] VITALS: BP 101/70
[2020-10-20] MEDS ORDERED: DIPHENHYDRAMINE 50MG/ML VIAL IV PRN (21:15)
[2020-10-20] MEDS ORDERED: CLONIDINE 0.1MG TABLET PO PRN (21:15)
[2020-10-20] MEDS ORDERED: NALOXONE HCL 0.4 MG/ML 1ML VIAL IV PRN (21:15)
[2020-10-20] MEDS ORDERED: GUAIFENESIN 200MG/10ML SUGAR FREE UDC PO PRN (21:15)
[2020-10-20] MEDS ORDERED: IPRATROPIUM/ALBUTEROL 0.5-3(2.5)MG/3ML NEB HHN PRN (21:15)
[2020-10-20] MEDS ORDERED: MAGNESIUM/ALUMINUM HYDROXIDE/SIMETHICONE 30ML UDC PO PRN (21:15)
[2020-10-20] MEDS ORDERED: ONDANSETRON HCL 4MG/2ML INJ IV PRN (21:15)
[2020-10-20] MEDS: METOPROLOL TARTRATE 25MG TABLET PO SCH (21:30)
[2020-10-20] MEDS: HYDROCODONE/ACETAMINOPHEN 5/325MG TABLET PO PRN (21:44)
[2020-10-20] MEDS: FAMOTIDINE 20MG TABLET PO SCH (21:44)
[2020-10-20] MEDS ORDERED: GABAPENTIN 300MG CAPSULE PO SCH (22:00)
[2020-10-21] MEDS: MORPHINE SULFATE 2 MG/ML CPJ (NOT FOR IM USE) IV PRN ×4 (00:44→20:22)
[2020-10-21 01:35] LABS: CLARITY URINE CLEAR (CLEAR); COLOR URINE YELLOW (YELLOW); KETONES URINE NEGATIVE (NEGATIVE); LEUKOCYTE ESTERASE URINE TRACE (NEGATIVE); NITRITE URINE NEGATIVE (NEGATIVE); OCCULT BLOOD URINE 2+ (NEGATIVE); PH URINE 6.5 (4.5-8.0); PROTEIN URINE NEGATIVE (NEGATIVE); SPECIFIC GRAVITY URINE 1.007 (1.005-1.030); UROBILINOGEN URINE 0.2 E.U./dL (0.2-1.0)
[2020-10-21] MEDS: METOPROLOL TARTRATE 25MG TABLET PO SCH ×3 (05:58→22:18)
[2020-10-21] MEDS: DOCUSATE SODIUM 100MG CAPSULE PO PRN ×2 (06:02→08:58)
[2020-10-21] MEDS: GABAPENTIN 100MG CAPSULE PO SCH ×3 (06:02→22:19)
[2020-10-21] MEDS: HYDROCODONE/ACETAMINOPHEN 5/325MG TABLET PO PRN ×3 (06:03→16:32)
[2020-10-21 08:06] VITALS: BP 101/68
[2020-10-21] MEDS: FAMOTIDINE 20MG TABLET PO SCH ×2 (08:58→22:18)
[2020-10-21] MEDS: AMLODIPINE 10MG TABLET PO SCH (08:58)
[2020-10-21] MEDS ORDERED: NA PHOS,M-B/NA PHOS,DI-BA ENEMA 118ML PR PRN (15:30)
[2020-10-21] MEDS: DOCUSATE SODIUM 100MG CAPSULE PO SCH (17:18)
[2020-10-21] MEDS: BISACODYL 5MG TABLET PO PRN (17:18)
[2020-10-21 20:00] VITALS: BP 116/72
[2020-10-22] MEDS: MORPHINE SULFATE 2 MG/ML CPJ (NOT FOR IM USE) IV PRN ×2 (01:27→08:08)
[2020-10-22] MEDS: METOPROLOL TARTRATE 25MG TABLET PO SCH ×3 (06:00→22:00)
[2020-10-22 06:35] LABS: CHLORIDE 101 mEq/L (98-107)
[2020-10-22 06:43] LABS: BASOPHILS % 0.2 % (0.0-2.0); EOSINOPHILS % 2.8 % (0.0-5.0); HEMATOCRIT. 42.6 % (36.0-48.0); HEMOGLOBIN. 14.5 g/dL (12.0-16.0); LYMPHOCYTES % 33.9 % (20.0-50.0); MEAN CORPUSCULAR HEMOGLOBIN 28.2 pg (28.0-32.0); MEAN CORPUSCULAR VOLUME 82.7 fL (81.0-99.0); MEAN PLATELET VOLUME 6.9 fl (7.4-10.4); MONOCYTES % 8.7 % (2.0-8.0); NEUTROPHILS % 54.4 % (40.0-76.0); PLATELET 395 x1000/uL (130-400); RED BLOOD CELL COUNT 5.15 mill/uL (4.2-5.4); RED CELL DISTRIBUTION WIDTH 14.1 % (11.6-14.6)
[2020-10-22] MEDS: ACETAMINOPHEN 325MG TABLET PO PRN ×2 (06:47→15:36)
[2020-10-22] MEDS: GABAPENTIN 100MG CAPSULE PO SCH ×3 (06:47→21:57)
[2020-10-22] MEDS: DOCUSATE SODIUM 100MG CAPSULE PO SCH ×2 (08:08→17:26)
[2020-10-22] MEDS: FAMOTIDINE 20MG TABLET PO SCH ×2 (08:08→21:57)
[2020-10-22] MEDS: AMLODIPINE 10MG TABLET PO SCH (08:13)
[2020-10-22 08:20] VITALS: BP 108/66
[2020-10-22] MEDS: HYDROCODONE/ACETAMINOPHEN 5/325MG TABLET PO PRN ×3 (10:43→22:00)
[2020-10-22 20:00] VITALS: BP 91/59
[2020-10-23] MEDS: HYDROCODONE/ACETAMINOPHEN 5/325MG TABLET PO PRN ×4 (04:28→20:09)
[2020-10-23] MEDS: METOPROLOL TARTRATE 25MG TABLET PO SCH ×3 (06:00→21:11)
[2020-10-23] MEDS: GABAPENTIN 100MG CAPSULE PO SCH ×3 (06:23→21:11)
[2020-10-23 07:50] VITALS: BP 105/72
[2020-10-23] MEDS: AMLODIPINE 10MG TABLET PO SCH (08:20)
[2020-10-23] MEDS: DOCUSATE SODIUM 100MG CAPSULE PO SCH ×2 (08:20→16:12)
[2020-10-23] MEDS: FAMOTIDINE 20MG TABLET PO SCH ×2 (08:20→20:12)
[2020-10-23 12:40] VITALS: BP 131/83
[2020-10-23] MEDS: TRAMADOL 50MG TABLET PO PRN (13:15)
[2020-10-23 16:04] VITALS: BP 112/79
[2020-10-23 20:00] VITALS: BP 105/61
[2020-10-24] MEDS: TRAMADOL 50MG TABLET PO PRN ×3 (00:45→21:33)
[2020-10-24] MEDS: HYDROCODONE/ACETAMINOPHEN 5/325MG TABLET PO PRN ×4 (04:09→21:39)
[2020-10-24] MEDS: METOPROLOL TARTRATE 25MG TABLET PO SCH ×3 (06:00→21:34)
[2020-10-24] MEDS: GABAPENTIN 100MG CAPSULE PO SCH ×3 (06:33→21:34)
[2020-10-24 07:36] VITALS: BP 112/79
[2020-10-24] MEDS: DOCUSATE SODIUM 100MG CAPSULE PO SCH ×2 (08:14→16:38)
[2020-10-24] MEDS: BISACODYL 5MG TABLET PO PRN (08:15)
[2020-10-24] MEDS: FAMOTIDINE 20MG TABLET PO SCH ×2 (08:15→21:00)
[2020-10-24] MEDS: AMLODIPINE 10MG TABLET PO SCH (08:15)
[2020-10-24] MEDS: ACETAMINOPHEN 325MG TABLET PO PRN ×4 (08:15→23:07)
[2020-10-24 13:07] VITALS: BP 109/69
[2020-10-24 20:00] VITALS: BP 112/70
[2020-10-25] MEDS: GABAPENTIN 100MG CAPSULE PO SCH ×3 (05:31→21:00)
[2020-10-25] MEDS: METOPROLOL TARTRATE 25MG TABLET PO SCH ×3 (05:31→21:05)
[2020-10-25] MEDS: HYDROCODONE/ACETAMINOPHEN 5/325MG TABLET PO PRN ×4 (05:32→19:25)
[2020-10-25 08:00] VITALS: BP 116/71
[2020-10-25] MEDS: DOCUSATE SODIUM 100MG CAPSULE PO SCH ×2 (09:28→18:25)
[2020-10-25] MEDS: FAMOTIDINE 20MG TABLET PO SCH ×2 (09:28→21:00)
[2020-10-25] MEDS: AMLODIPINE 10MG TABLET PO SCH (09:28)
[2020-10-25] MEDS: TRAMADOL 50MG TABLET PO PRN ×3 (09:41→23:59)
[2020-10-25] MEDS: ACETAMINOPHEN 325MG TABLET PO PRN ×2 (09:45→18:25)
[2020-10-25 20:00] VITALS: BP 102/65
[2020-10-26] MEDS: HYDROCODONE/ACETAMINOPHEN 5/325MG TABLET PO PRN ×3 (00:06→12:22)
[2020-10-26] MEDS: GABAPENTIN 100MG CAPSULE PO SCH ×3 (05:06→21:36)
[2020-10-26] MEDS: METOPROLOL TARTRATE 25MG TABLET PO SCH ×3 (05:14→21:36)
[2020-10-26 08:00] VITALS: BP 108/71
[2020-10-26] MEDS: AMLODIPINE 10MG TABLET PO SCH (08:38)
[2020-10-26] MEDS: FAMOTIDINE 20MG TABLET PO SCH ×3 (08:38→21:36)
[2020-10-26] MEDS: DOCUSATE SODIUM 100MG CAPSULE PO SCH ×2 (08:38→16:49)
[2020-10-26 12:23] VITALS: BP 109/73
[2020-10-26] MEDS: HYDROCODONE/ACETAMINOPHEN 10/325MG TABLET PO PRN ×2 (16:50→23:04)
[2020-10-26] MEDS: TRAMADOL 50MG TABLET PO PRN (19:51)
[2020-10-26 20:00] VITALS: BP 139/90
[2020-10-27] MEDS: ACETAMINOPHEN 325MG TABLET PO PRN ×3 (01:09→16:15)
[2020-10-27] MEDS: TRAMADOL 50MG TABLET PO PRN ×3 (02:12→16:20)
[2020-10-27] MEDS: HYDROCODONE/ACETAMINOPHEN 10/325MG TABLET PO PRN ×3 (05:17→21:01)
[2020-10-27] MEDS: METOPROLOL TARTRATE 25MG TABLET PO SCH ×3 (05:17→20:23)
[2020-10-27] MEDS: GABAPENTIN 100MG CAPSULE PO SCH ×3 (05:17→21:00)
[2020-10-27 07:43] VITALS: BP 138/96
[2020-10-27] MEDS: DOCUSATE SODIUM 100MG CAPSULE PO SCH ×2 (08:35→16:21)
[2020-10-27] MEDS: AMLODIPINE 10MG TABLET PO SCH (08:35)
[2020-10-27] MEDS: FAMOTIDINE 20MG TABLET PO SCH ×2 (08:36→21:00)
[2020-10-27] MEDS: LIDOCAINE 5% PATCH TOP SCH (11:23)
[2020-10-27 11:42] VITALS: BP 114/79
[2020-10-27 16:20] VITALS: BP 114/70
[2020-10-27 20:00] VITALS: BP 103/68
[2020-10-28] MEDS: TRAMADOL 50MG TABLET PO PRN ×2 (01:22→11:49)
[2020-10-28] MEDS: METOPROLOL TARTRATE 25MG TABLET PO SCH ×3 (06:00→22:00)
[2020-10-28] MEDS: HYDROCODONE/ACETAMINOPHEN 10/325MG TABLET PO PRN ×4 (06:35→20:32)
[2020-10-28] MEDS: GABAPENTIN 100MG CAPSULE PO SCH ×3 (06:35→20:31)
[2020-10-28 07:22] LABS: CHLORIDE 100 mEq/L (98-107)
[2020-10-28 07:29] LABS: BASOPHILS % 0.5 % (0.0-2.0); EOSINOPHILS % 2.6 % (0.0-5.0); HEMATOCRIT. 38.3 % (36.0-48.0); HEMOGLOBIN. 13.2 g/dL (12.0-16.0); LYMPHOCYTES % 33.8 % (20.0-50.0); MEAN CORPUSCULAR HEMOGLOBIN 28.6 pg (28.0-32.0); MEAN CORPUSCULAR VOLUME 82.9 fL (81.0-99.0); MEAN PLATELET VOLUME 6.6 fl (7.4-10.4); MONOCYTES % 9.4 % (2.0-8.0); NEUTROPHILS % 53.7 % (40.0-76.0); PLATELET 337 x1000/uL (130-400); RED BLOOD CELL COUNT 4.62 mill/uL (4.2-5.4); RED CELL DISTRIBUTION WIDTH 13.8 % (11.6-14.6)
[2020-10-28 08:00] VITALS: BP 99/63
[2020-10-28] MEDS: AMLODIPINE 10MG TABLET PO SCH (09:00)
[2020-10-28] MEDS: FAMOTIDINE 20MG TABLET PO SCH ×2 (09:16→20:31)
[2020-10-28] MEDS: DOCUSATE SODIUM 100MG CAPSULE PO SCH ×2 (09:17→17:21)
[2020-10-28] MEDS: LIDOCAINE 5% PATCH TOP SCH (09:19)
[2020-10-28 20:00] VITALS: BP 106/67
[2020-10-29] MEDS: GABAPENTIN 100MG CAPSULE PO SCH ×3 (06:11→21:44)
[2020-10-29] MEDS: METOPROLOL TARTRATE 25MG TABLET PO SCH ×3 (06:11→23:07)
[2020-10-29] MEDS: HYDROCODONE/ACETAMINOPHEN 10/325MG TABLET PO PRN ×3 (06:12→23:10)
[2020-10-29 07:47] VITALS: BP 111/79
[2020-10-29] MEDS: AMLODIPINE 10MG TABLET PO SCH (09:02)
[2020-10-29] MEDS: LIDOCAINE 5% PATCH TOP SCH (09:02)
[2020-10-29] MEDS: FAMOTIDINE 20MG TABLET PO SCH ×2 (09:02→21:00)
[2020-10-29] MEDS: DOCUSATE SODIUM 100MG CAPSULE PO SCH ×2 (09:02→16:45)
[2020-10-29 12:57] VITALS: BP 116/64
[2020-10-29 16:50] VITALS: BP 107/62
[2020-10-29 20:00] VITALS: BP 102/69
[2020-10-30] MEDS: BISACODYL 5MG TABLET PO PRN (02:11)
[2020-10-30] MEDS: ACETAMINOPHEN 325MG TABLET PO PRN (02:17)
[2020-10-30] MEDS: HYDROCODONE/ACETAMINOPHEN 10/325MG TABLET PO PRN ×3 (05:17→21:13)
[2020-10-30] MEDS: GABAPENTIN 100MG CAPSULE PO SCH ×3 (05:18→21:12)
[2020-10-30] MEDS: METOPROLOL TARTRATE 25MG TABLET PO SCH ×3 (05:18→21:13)
[2020-10-30 08:00] VITALS: BP 104/62
[2020-10-30] MEDS: FAMOTIDINE 20MG TABLET PO SCH ×2 (08:49→21:12)
[2020-10-30] MEDS: DOCUSATE SODIUM 100MG CAPSULE PO SCH ×2 (08:49→17:08)
[2020-10-30] MEDS: AMLODIPINE 10MG TABLET PO SCH (08:49)
[2020-10-30] MEDS: LIDOCAINE 5% PATCH TOP SCH (08:51)
[2020-10-30 12:17] VITALS: BP 129/88
[2020-10-30] MEDS ORDERED: HYDROCODONE/ACETAMINOPHEN 5/325MG TABLET PO PRN (15:45)
[2020-10-30 15:56] VITALS: BP 117/71
[2020-10-30 20:00] VITALS: BP 102/65
[2020-10-31] MEDS: HYDROCODONE/ACETAMINOPHEN 10/325MG TABLET PO PRN ×4 (03:12→21:12)
[2020-10-31] MEDS: METOPROLOL TARTRATE 25MG TABLET PO SCH ×3 (05:11→21:12)
[2020-10-31] MEDS: GABAPENTIN 100MG CAPSULE PO SCH ×3 (05:11→21:10)
[2020-10-31 08:00] VITALS: BP 100/59
[2020-10-31] MEDS: DOCUSATE SODIUM 100MG CAPSULE PO SCH ×2 (08:58→17:00)
[2020-10-31] MEDS: AMLODIPINE 10MG TABLET PO SCH (09:00)
[2020-10-31] MEDS: FAMOTIDINE 20MG TABLET PO SCH ×2 (09:01→21:10)
[2020-10-31] MEDS: LIDOCAINE 5% PATCH TOP SCH (09:02)
[2020-10-31] MEDS: ACETAMINOPHEN 325MG TABLET PO PRN ×2 (15:37→15:40)
[2020-10-31 20:00] VITALS: BP 99/61
[2020-11-01] MEDS: HYDROCODONE/ACETAMINOPHEN 10/325MG TABLET PO PRN ×3 (01:32→13:26)
[2020-11-01] MEDS: METOPROLOL TARTRATE 25MG TABLET PO SCH ×2 (06:00→13:25)
[2020-11-01] MEDS: GABAPENTIN 100MG CAPSULE PO SCH (06:05)
[2020-11-01 08:00] VITALS: BP 99/64
[2020-11-01] MEDS: DOCUSATE SODIUM 100MG CAPSULE PO SCH ×2 (08:15→08:54)
[2020-11-01] MEDS: AMLODIPINE 10MG TABLET PO SCH (08:43)
[2020-11-01] MEDS: FAMOTIDINE 20MG TABLET PO SCH (08:43)
[2020-11-01] MEDS: LIDOCAINE 5% PATCH TOP SCH (08:51)
[2020-11-01 12:00] VITALS: BP 118/70
[2020-11-01 12:11] VITALS: BP 125/65
[2020-11-01] MEDS ORDERED: GABA-529 PO (13:00)
[2020-11-01 13:26] VITALS: BP 118/70
== END 2020-11-01 14:45 | disposition home health service (06) | DRG 552 ==
PROVIDERS: ADMIT Psychiatry & Neurology Neurology; ATTEND Internal Medicine
DX: M47.22 Other spondylosis with radiculopathy, cervical region (principal); G95.20 Unspecified cord compression; M48.02 Spinal stenosis, cervical region; M43.12 Spondylolisthesis, cervical region; K29.70 Gastritis, unspecified, without bleeding; I27.20 Pulmonary hypertension, unspecified; I10 Essential (primary) hypertension; K21.9 Gastro-esophageal reflux disease without esophagitis; M19.012 Primary osteoarthritis, left shoulder; M50.10 Cervical disc disorder with radiculopathy, unspecified cervical region; F39 Unspecified mood [affective] disorder; E78.5 Hyperlipidemia, unspecified
CPT/HCPCS: 36415; 72141; 80048; 81003; 85025; 92523; 92610; 93970; 97110; 97116; 97162; 97166; 97530; 97535; J2270; J2310; L0172

== ENCOUNTER 2021-11-28 15:35 | Emergency (ER) | payer MEDICARE, MEDICAID ==
[~2021-11-28] VITALS: Ht 170.2 cm; Wt 99.0 kg
[~2021-11-28 15:35] MED LIST changes: +ALPR0.25 PO; +AMLO5TAB88 PO; -DIAZ10TA MT; +GABA-529 PO; +HYDR-4134 PO; -METH-773 MT
[2021-11-28 17:30] LABS: BASOPHILS % 0.5 % (0.0-2.0); EOSINOPHILS % 2.5 % (0.0-5.0); HEMATOCRIT. 39.5 % (36.0-48.0); HEMOGLOBIN. 13.2 g/dL (12.0-16.0); LYMPHOCYTES % 36.5 % (20.0-50.0); MEAN CORPUSCULAR HEMOGLOBIN 27.2 pg (28.0-32.0); MEAN CORPUSCULAR VOLUME 81.1 fL (81.0-99.0); MEAN PLATELET VOLUME 6.9 fl (7.4-10.4); MONOCYTES % 8.1 % (2.0-8.0); NEUTROPHILS % 52.4 % (40.0-76.0); PLATELET 312 x1000/uL (130-400); RED BLOOD CELL COUNT 4.86 mill/uL (4.2-5.4); RED CELL DISTRIBUTION WIDTH 14.4 % (11.6-14.6)
[2021-11-28 17:34] LABS: CHLORIDE 108 mEq/L (98-107)
[2021-11-29] MEDS ORDERED: KETOROLAC 60MG/2ML VIAL IM ONE
[2021-11-29] MEDS ORDERED: MELO-105 MT (00:23)
[2021-11-29 00:28] VITALS: BP 137/89
== END 2021-11-29 00:32 | disposition home or self-care (01) ==
LOC: ER 15:35
DX: M17.11 Unilateral primary osteoarthritis, right knee (principal); N64.4 Mastodynia; F12.10 Cannabis abuse, uncomplicated; I10 Essential (primary) hypertension; Z98.51 Tubal ligation status; Z98.890 Other specified postprocedural states
CPT/HCPCS: 36415; 71045; 73562; 80053; 85025; 93005; 99285

== ENCOUNTER 2022-01-10 13:21 | Emergency (ER) | payer MEDICARE, MEDICAID ==
[~2022-01-10] VITALS: Ht 170.2 cm; Wt 100.0 kg
[~2022-01-10 13:21] MED LIST changes: +MELO-105 MT
[2022-01-10] MEDS ORDERED: VISCOUS LIDOCAINE 2% 15 ML UDC MM PRN (15:00)
[2022-01-10 15:45] VITALS: BP 115/75
== END 2022-01-10 15:45 | disposition home or self-care (01) ==
LOC: ER 13:21
DX: M25.561 Pain in right knee (principal); K14.6 Glossodynia; I10 Essential (primary) hypertension; Z98.51 Tubal ligation status; F12.10 Cannabis abuse, uncomplicated
CPT/HCPCS: 99281

== ENCOUNTER 2022-12-18 15:11 | Emergency (ER) | payer MEDICARE, MEDICAID ==
[~2022-12-18] VITALS: Ht 170.2 cm; Wt 98.0 kg
[2022-12-18 15:39] VITALS: BP 140/89; PULSE 69; RESP 20; O2SAT 100
[2022-12-18 16:45] VITALS: TEMP 98.5
[2022-12-18] MEDS ORDERED: ACETAMINOPHEN 325MG TABLET PO ONE (16:45)
[2022-12-18] MEDS ORDERED: METOCLOPRAMIDE HCL 10MG TABLET PO ONE (16:45)
[2022-12-18] MEDS ORDERED: METO-293 MT (17:04)
== END 2022-12-18 17:44 | disposition home or self-care (01) ==
LOC: ER 15:36
DX: G43.909 Migraine, unspecified, not intractable, without status migrainosus (principal); I10 Essential (primary) hypertension; Z00.00 Encounter for general adult medical examination without abnormal findings; Z98.51 Tubal ligation status; F12.10 Cannabis abuse, uncomplicated
CPT/HCPCS: 99284; 70450; J8597

== ENCOUNTER 2023-04-21 09:45 | Emergency (ER) | payer MEDICARE, MEDICAID ==
[~2023-04-21] VITALS: Ht 172.7 cm; Wt 79.0 kg
[~2023-04-21 09:45] MED LIST changes: +METO-293 MT
[2023-04-21 10:01] VITALS: TEMP 97.6; O2SAT 100
[2023-04-21 10:37] LABS: BASOPHILS % 0.7 % (0.0-2.0); HEMOGLOBIN. 13.2 g/dL (12.0-16.0); LYMPHOCYTES % 33.6 % (20.0-50.0); MEAN CORPUSCULAR HEMOGLOBIN 27.3 pg (28.0-32.0); MEAN CORPUSCULAR HGB CONC 33.8 g/dL (31.0-37.0); MEAN CORPUSCULAR VOLUME 80.9 fL (81.0-99.0); MEAN PLATELET VOLUME 6.5 fl (7.4-10.4); NEUTROPHILS % 55.7 % (40.0-76.0); PLATELET 357 x1000/uL (130-400); RED BLOOD CELL COUNT 4.82 mill/uL (4.2-5.4); RED CELL DISTRIBUTION WIDTH 14.7 % (11.6-14.6); WHITE BLOOD COUNT 9.3 x1000/uL (4.5-11.0)
[2023-04-21 10:43] LABS: CLARITY URINE CLEAR (CLEAR); COLOR URINE YELLOW (YELLOW); GLUCOSE URINE NEGATIVE (NEGATIVE); KETONES URINE NEGATIVE (NEGATIVE); LEUKOCYTE ESTERASE URINE 1+ (NEGATIVE); NITRITE URINE NEGATIVE (NEGATIVE); OCCULT BLOOD URINE TRACE (NEGATIVE); PH URINE 5.5 (4.5-8.0); PROTEIN URINE NEGATIVE (NEGATIVE); SPECIFIC GRAVITY URINE 1.023 (1.005-1.030)
[2023-04-21 10:53] LABS: CHLORIDE 108 mEq/L (98-107); INDEX HEMOLYSI 1 (1-3); INDEX ICTERIC 1 (1-4); INDEX LIPEMIC 1 (1-3); POTASSIUM 4.6 mEq/L (3.5-5.1); SODIUM 139 mEq/L (136-145)
[2023-04-21 11:00] LABS: ALANINE AMINOTRANSFERASE 14 IU/L (13-61); ASPARTATE AMINOTRANSFERASE 16 IU/L (15-37); BILIRUBIN TOTAL 0.5 mg/dL (0.1-1.0); CALCIUM 9.9 mg/dL (8.5-10.1); CARBON DIOXIDE 29 mEq/L (21-32); CREATININE 0.8 mg/dL (0.6-1.3); GLUCOSE 99 mg/dL (70-105); UREA NITROGEN BLOOD 16 mg/dL (7-21)
[2023-04-21 11:00] LABS: MUCUS URINE 2+ /lpf (< = 2+); SQUAMOUS EPITHELIAL CELL URINE 2+ /lpf (RARE/1+)
[2023-04-21 11:01] LABS: BACTERIA URINE 2+; RBC URINE 0-2 /hpf (0-2)
[2023-04-21] MEDS ORDERED: HYDROCODONE/ACETAMINOPHEN 5/325MG TABLET PO ONE (11:45)
[2023-04-21] MEDS ORDERED: KETOROLAC 30MG/ML VIAL IM ONE (11:45)
[2023-04-21] MEDS ORDERED: LIDO700A15 TP (12:33)
[2023-04-21] MEDS ORDERED: NAPR375T5 MT (12:33)
[2023-04-21 13:03] VITALS: BP 145/87; PULSE 87; RESP 19
== END 2023-04-21 13:04 | disposition home or self-care (01) ==
LOC: ER 09:45
DX: R51.9 Headache, unspecified (principal); M54.2 Cervicalgia; F12.10 Cannabis abuse, uncomplicated; I10 Essential (primary) hypertension; Z98.890 Other specified postprocedural states; Z98.51 Tubal ligation status
CPT/HCPCS: 99283; 80053; 81003; 85025; 36415; 96372; J1885

== ENCOUNTER 2024-05-29 14:15 | Emergency (ER) | payer MEDICARE, MEDICAID ==
[~2024-05-29] VITALS: Ht 170.2 cm; Wt 109.0 kg
[~2024-05-29 14:15] MED LIST changes: -HYDR-4134 PO; +HYDR25TA78 PO; +LIDO700A15 TP; +NAPR-1494 MT
[2024-05-29 14:25] VITALS: O2SAT 98
[2024-05-29 16:17] LABS: BASOPHILS % 0.1 % (0.0-2.0); EOSINOPHILS % 0.5 % (0.0-5.0); HEMATOCRIT. 41.9 % (36.0-48.0); HEMOGLOBIN. 13.7 g/dL (12.0-16.0); LYMPHOCYTES % 8.6 % (20.0-50.0); MEAN CORPUSCULAR HEMOGLOBIN 26.6 pg (28.0-32.0); MEAN CORPUSCULAR HGB CONC 32.7 g/dL (31.0-37.0); MEAN CORPUSCULAR VOLUME 81.4 fL (81.0-99.0); MONOCYTES % 4.3 % (2.0-8.0); NEUTROPHILS % 86.5 % (40.0-76.0); PLATELET 355 x1000/uL (130-400); RED BLOOD CELL COUNT 5.15 mill/uL (4.2-5.4); RED CELL DISTRIBUTION WIDTH 14.9 % (11.6-14.6); WHITE BLOOD COUNT 11.1 x1000/uL (4.5-11.0)
[2024-05-29 16:26] LABS: CHLORIDE 100 mEq/L (98-107); POTASSIUM 3.7 mEq/L (3.5-5.1); SODIUM 137 mEq/L (136-145)
[2024-05-29 16:27] LABS: CALCIUM 10.2 mg/dL (8.7-10.4); CARBON DIOXIDE 28 mEq/L (21-32)
[2024-05-29 16:32] LABS: CREATININE 0.7 mg/dL (0.6-1.0); GLUCOSE 118 mg/dL (70-105); TROPONIN I HIGH SENSITIVITY 10 ng/L (3.0-34); UREA NITROGEN BLOOD 12 mg/dL (9-23)
[2024-05-29 16:34] LABS: ALANINE AMINOTRANSFERASE 15 IU/L (10-49); ALBUMIN 4.8 g/dL (3.2-4.8); ASPARTATE AMINOTRANSFERASE 30 IU/L (<34); BILIRUBIN DIRECT 0.1 mg/dL (<=3.0); BILIRUBIN TOTAL 0.6 mg/dL (0.1-1.0); PROTEIN TOTAL 8.3 g/dL (6.0-8.3)
[2024-05-29 17:49] LABS: CLARITY URINE CLEAR (CLEAR); COLOR URINE YELLOW (YELLOW); GLUCOSE URINE NEGATIVE (NEGATIVE); KETONES URINE TRACE (NEGATIVE); LEUKOCYTE ESTERASE URINE NEGATIVE (NEGATIVE); NITRITE URINE NEGATIVE (NEGATIVE); OCCULT BLOOD URINE 2+ (NEGATIVE); PH URINE 7.5 (4.5-8.0); PROTEIN URINE TRACE (NEGATIVE); SPECIFIC GRAVITY URINE 1.012 (1.005-1.030); UROBILINOGEN URINE 0.2 E.U./dL (0.2-1.0)
[2024-05-29] MEDS ORDERED: ONDA-239 PO (18:10)
[2024-05-29 18:18] LABS: BACTERIA URINE 1+; SQUAMOUS EPITHELIAL CELL URINE 1+ /lpf (RARE/1+); WBC URINE 0-2 /hpf (0-2)
[2024-05-29] MEDS: KETOROLAC 30MG/ML VIAL IM ONE (18:31)
[2024-05-29] MEDS: ACETAMINOPHEN 325MG TABLET PO ONE (18:31)
[2024-05-29] MEDS: ONDANSETRON 4MG ODT PO ONE (18:32)
[2024-05-29 18:35] VITALS: BP 145/85; PULSE 85; RESP 16; TEMP 37.05852; O2SAT 98
== END 2024-05-29 18:37 | disposition home or self-care (01) ==
LOC: ER 14:15
DX: R11.2 Nausea with vomiting, unspecified (principal); R51.9 Headache, unspecified; I10 Essential (primary) hypertension; Z79.899 Other long term (current) drug therapy; Z98.890 Other specified postprocedural states; Z98.51 Tubal ligation status
CPT/HCPCS: 99284; 80076; 80048; 81003; 83690; 85025; 84484; 36415; 93005; 96372; Q0162; J1885

== ENCOUNTER 2024-06-24 14:59 | Emergency (ER) | payer MEDICARE, MEDICAID ==
[~2024-06-24] VITALS: Ht 167.6 cm; Wt 105.0 kg
[~2024-06-24 14:59] MED LIST changes: +ONDA-239 PO
[2024-06-24 15:07] VITALS: BP 126/75; PULSE 65; RESP 16; TEMP 98.5; O2SAT 98
[2024-06-24] MEDS ORDERED: AZIT250T12 MT (16:07)
[2024-06-24 16:48] LABS: BASOPHILS % 0.3 % (0.0-2.0); EOSINOPHILS % 3.3 % (0.0-5.0); HEMATOCRIT. 36.8 % (36.0-48.0); HEMOGLOBIN. 11.9 g/dL (12.0-16.0); LYMPHOCYTES % 17.7 % (20.0-50.0); MEAN CORPUSCULAR HEMOGLOBIN 26.7 pg (28.0-32.0); MEAN CORPUSCULAR HGB CONC 32.3 g/dL (31.0-37.0); MEAN CORPUSCULAR VOLUME 82.5 fL (81.0-99.0); MONOCYTES % 10.4 % (2.0-8.0); NEUTROPHILS % 68.3 % (40.0-76.0); PLATELET 314 x1000/uL (130-400); RED BLOOD CELL COUNT 4.46 mill/uL (4.2-5.4); RED CELL DISTRIBUTION WIDTH 15.1 % (11.6-14.6); WHITE BLOOD COUNT 11.5 x1000/uL (4.5-11.0)
[2024-06-24 16:51] LABS: CHLORIDE 106 mEq/L (98-107); POTASSIUM 3.9 mEq/L (3.5-5.1); SODIUM 141 mEq/L (136-145)
[2024-06-24 16:52] LABS: CARBON DIOXIDE 30 mEq/L (21-32)
[2024-06-24 16:53] LABS: CALCIUM 9.5 mg/dL (8.7-10.4)
[2024-06-24 16:57] LABS: CREATININE 0.6 mg/dL (0.6-1.0); GLUCOSE 157 mg/dL (70-105)
[2024-06-24 16:58] LABS: UREA NITROGEN BLOOD 8 mg/dL (9-23)
[2024-06-24 17:00] LABS: TROPONIN I HIGH SENSITIVITY 8 ng/L (3.0-34)
== END 2024-06-24 16:17 | disposition home or self-care (01) ==
LOC: ER 14:59
DX: J18.9 Pneumonia, unspecified organism (principal); I10 Essential (primary) hypertension; F12.90 Cannabis use, unspecified, uncomplicated; Z79.1 Long term (current) use of non-steroidal anti-inflammatories (NSAID); Z79.899 Other long term (current) drug therapy; Z98.51 Tubal ligation status
CPT/HCPCS: 36415; 71045; 80048; 84484; 85025; 93005; 99285

== ENCOUNTER 2024-08-22 13:32 | Emergency (ER) | payer MEDICARE, MEDICAID ==
[~2024-08-22] VITALS: Ht 170.2 cm; Wt 109.0 kg
[~2024-08-22 13:32] MED LIST changes: +AZIT250T12 MT
[2024-08-22 13:39] VITALS: O2SAT 98
[2024-08-22] MEDS: KETOROLAC 15MG/ML VIAL IV ONE (16:03)
[2024-08-22] MEDS: METOCLOPRAMIDE HCL 10MG/2ML VIAL IV ONE (16:03)
[2024-08-22] MEDS ORDERED: KETO10TA2 MT (16:48)
[2024-08-22 17:24] VITALS: BP 132/68; PULSE 84; RESP 16; TEMP 36.8; O2SAT 98
== END 2024-08-22 17:30 | disposition home or self-care (01) ==
LOC: ER 13:32
DX: G43.909 Migraine, unspecified, not intractable, without status migrainosus (principal); G62.9 Polyneuropathy, unspecified; I10 Essential (primary) hypertension; F12.90 Cannabis use, unspecified, uncomplicated; Z79.1 Long term (current) use of non-steroidal anti-inflammatories (NSAID); Z79.899 Other long term (current) drug therapy
CPT/HCPCS: 99285; 96374; 70450; 96375; J1885; J2765

== ENCOUNTER 2024-11-21 16:08 | Emergency (ER) | payer MEDICAID, MEDICARE ==
[~2024-11-21] VITALS: Ht 170.2 cm; Wt 107.0 kg
[~2024-11-21 16:08] MED LIST changes: +ASPI-1406 PO; -AZIT250T12 MT; +KETO10TA2 MT; +LIDO-53 TP; -LIDO700A15 TP; +METR-167 MT; +PANT20TA17 MT
[2024-11-21 16:19] VITALS: TEMP 36.9; O2SAT 100
[2024-11-21] MEDS: KETOROLAC 30MG/ML VIAL IM ONE (17:53)
[2024-11-21] MEDS: CYCLOBENZAPRINE 10MG TABLET PO ONE (17:54)
[2024-11-21] MEDS: LIDOCAINE 5% PATCH TOP SCH (17:54)
[2024-11-21] MEDS ORDERED: LIDO-53 TP (18:42)
[2024-11-21] MEDS ORDERED: KETO10TA2 MT (18:42)
[2024-11-21] MEDS ORDERED: CYCL10TA21 MT (18:42)
[2024-11-21 18:58] VITALS: BP 161/96; PULSE 70; RESP 18; O2SAT 100
== END 2024-11-21 19:04 | disposition home or self-care (01) ==
LOC: ER 16:08
DX: M54.50 Low back pain, unspecified (principal); M85.80 Other specified disorders of bone density and structure, unspecified site; I10 Essential (primary) hypertension; Z79.1 Long term (current) use of non-steroidal anti-inflammatories (NSAID); Z79.82 Long term (current) use of aspirin; Z79.899 Other long term (current) drug therapy
CPT/HCPCS: 99283; 72100; 96372; J1885

== ENCOUNTER 2025-01-31 14:26 | Emergency (ER) | payer MEDICARE, MEDICAID ==
[~2025-01-31] VITALS: Ht 172.7 cm; Wt 95.0 kg
[~2025-01-31 14:26] MED LIST changes: +CYCL10TA21 MT
[2025-01-31 14:39] VITALS: TEMP 37; O2SAT 99
[2025-01-31 15:29] LABS: BASOPHILS % 0.8 % (0.0-2.0); EOSINOPHILS % 2.8 % (0.0-5.0); HEMATOCRIT. 38.1 % (36.0-48.0); HEMOGLOBIN. 12.5 g/dL (12.0-16.0); LYMPHOCYTES % 29.6 % (20.0-50.0); MEAN PLATELET VOLUME 7.1 fl (7.4-10.4); MONOCYTES % 6.6 % (2.0-8.0); NEUTROPHILS % 60.2 % (40.0-76.0); PLATELET 350 x1000/uL (130-400); RED BLOOD CELL COUNT 4.75 mill/uL (4.2-5.4); RED CELL DISTRIBUTION WIDTH 15.4 % (11.6-14.6)
[2025-01-31 15:47] LABS: CREATININE 0.9 mg/dL (0.6-1.0); UREA NITROGEN BLOOD 16 mg/dL (9-23)
[2025-01-31 15:48] LABS: TROPONIN I HIGH SENSITIVITY 4 ng/L (3.0-34)
[2025-01-31 15:50] LABS: INR 1.0
[2025-01-31] MEDS: LIDOCAINE 5% PATCH TOP SCH (18:13)
[2025-01-31] MEDS: ACETAMINOPHEN 325MG TABLET PO ONE (18:14)
[2025-01-31] MEDS ORDERED: LIDO-53 TP (19:14)
[2025-01-31] MEDS ORDERED: ACET-2708 MT (19:14)
[2025-01-31] MEDS ORDERED: NAPR-420 MT (19:18)
[2025-01-31 19:57] VITALS: BP 166/111; PULSE 61; RESP 12; O2SAT 98
== END 2025-01-31 20:05 | disposition home or self-care (01) ==
LOC: ER 14:26
DX: R07.89 Other chest pain (principal); I10 Essential (primary) hypertension; R06.02 Shortness of breath; Z79.82 Long term (current) use of aspirin; Z98.890 Other specified postprocedural states; Z98.51 Tubal ligation status; Z79.899 Other long term (current) drug therapy
CPT/HCPCS: 36415; 71045; 71101; 80048; 83880; 84484; 85025; 93005; 99285

== ENCOUNTER 2025-06-17 10:35 | Emergency (ER) | payer MEDICARE, MEDICAID ==
[~2025-06-17] VITALS: Ht 170.2 cm; Wt 95.0 kg
[~2025-06-17 10:35] MED LIST changes: +ACET-2708 MT; +NAPR-420 MT
[2025-06-17 10:44] VITALS: BP 111/65; TEMP 36.7; O2SAT 96
[2025-06-17 11:00] VITALS: PULSE 86; RESP 18; O2SAT 99
[2025-06-17] MEDS ORDERED: CEPH500T MT (12:30)
[2025-06-17] MEDS ORDERED: SULF1TAB48 MT (12:30)
[2025-06-17] MEDS ORDERED: IBUP-1455 MT (12:30)
[2025-06-17] MEDS: IBUPROFEN 600MG TABLET PO ONE (12:40)
== END 2025-06-17 12:44 | disposition home or self-care (01) ==
LOC: ER 10:35
DX: N63.10 Unspecified lump in the right breast, unspecified quadrant (principal); N64.52 Nipple discharge; I10 Essential (primary) hypertension; Z98.51 Tubal ligation status; Z79.899 Other long term (current) drug therapy; Z79.82 Long term (current) use of aspirin; Z79.1 Long term (current) use of non-steroidal anti-inflammatories (NSAID)
CPT/HCPCS: 99283